=== PATIENT | female | born 2000 | race Caucasian/White ===

== ENCOUNTER 2022-09-01 08:11 | Outpatient (REF) | payer BC, SELFPAY ==
--- NOTE | ~2022-09-01 | MR_ITS ---
EXAMINATION: MR BRAIN WITHOUT CONTRAST CLINICAL INFORMATION: Exertional headaches. COMPARISON: None. TECHNIQUE: Multiplanar, multisequence imaging of the brain was performed without contrast. FINDINGS: No diffusion abnormalities are identified to suggest an acute infarct. The ventricles are normal in size. No mass effect or midline shift is seen. No brain parenchymal signal abnormality is noted. There is a small left middle cranial fossa arachnoid cyst, measuring approximately 1.4 x 3.3 x 1.2 cm in size. The brainstem and cerebellum are normal. The gradient refocused acquisition is normal. The craniovertebral junction, marrow signal, and midline structures are normal. The major intracranial flow voids at the level of the [place] are preserved. The dural venous sinus flow voids are maintained. The mastoid air cells are well aerated. There are imaging findings suggesting prior functional endoscopic sinus surgery with mild mucosal thickening in the ethmoid air cells; clinically correlate. MR/MR head/brain wo con IMPRESSION: Incidental small left middle cranial fossa arachnoid cyst. Otherwise, relatively normal MRI of the brain. No acute process.
== END 2022-09-01 08:12 | disposition home or self-care (01) ==
LOC: HO.MRI 08:11
PROVIDERS: Visit Provider Nurse Practitioner Family
DX: G44.84 Primary exertional headache (principal)
CPT/HCPCS: 70551

== ENCOUNTER 2022-09-22 10:02 | Outpatient (REF) | payer BC, SELFPAY ==
--- NOTE | ~2022-09-22 | XR_ITS ---
EXAMINATION: XR LUMBOSACRAL SPINE WITH OBLIQUES CLINICAL INFORMATION: Low back pain COMPARISON: None TECHNIQUE: AP, both oblique, and lateral views of the lumbar spine. Lateral view of the lumbosacral junction. FINDINGS: Bone alignment is normal. No fracture or dislocation. Normal disc spaces. No pars defect. XR/XR lumbar spine 4V min IMPRESSION: Unremarkable examination.
== END 2022-09-22 10:03 | disposition home or self-care (01) ==
LOC: HO.XRAY 10:02
PROVIDERS: Visit Provider Physician Assistant Medical
DX: M54.50 Low back pain, unspecified (principal)
CPT/HCPCS: 72110